=== PATIENT | male | born 1980 | race Caucasian/White ===

== ENCOUNTER 2022-01-06 14:39 | Inpatient (IN) | payer OTHER ==
[~2022-01-06] VITALS: Ht 170.2 cm; Wt 71.2 kg
[~2022-01-06 14:39] MED LIST: INS7030 SQ; LISI-893 PO; METF-1211 PO
[2022-01-06] MEDS ORDERED: VANCOMYCIN 1GM/WATER(PEG/NADA) 200 ML IV ONE (15:15)
[2022-01-06] MEDS ORDERED: SODIUM CHLORIDE 0.9% 1,000 ML IV ONE (15:15)
[2022-01-06] MEDS ORDERED: PIPERACILLIN/TAZO 3.375 GM/D5W 50 ML IV ONE (15:15)
[2022-01-06] MEDS ORDERED: ACETAMINOPHEN 500 MG TABLET PO ONE (15:15)
[2022-01-06] MEDS ORDERED: KETOROLAC TROMETHAMINE 30 MG/ML VIAL IVP ONE (15:15)
[2022-01-06 16:29] LABS: BASOPHILS % (AUTO) 0.6 % (0.0-2.0); EOSINOPHILS % (AUTO) 2.9 % (1.0-6.0); HEMATOCRIT 34.2 % (41-53); HEMOGLOBIN 11.4 g/dL (13.5-17.5); LYMPHOCYTES # (AUTO) 1.9 K/uL (1.0-4.8); LYMPHOCYTES % (AUTO) 27.5 % (22.0-44.0); MEAN CORPUSCULAR HEMOGLOBIN 27.7 pg (26.0-34.0); MEAN CORPUSCULAR HGB CONC 33.3 G/dL (31.0-37.0); MEAN CORPUSCULAR VOLUME 83 fL (80-100); MONOCYTES # (AUTO) 0.5 K/uL (0.1-1.0); MONOCYTES % (AUTO) 7.2 % (2.0-9.0); NEUTROPHILS # (AUTO) 4.2 K/uL (1.8-7.7); NEUTROPHILS % (AUTO) 61.8 % (40.0-70.0); PLATELET COUNT (AUTO) 262 K/uL (150-450); RED BLOOD CELL COUNT(AUTO) 4.11 MIL/uL (4.50-5.90); RED CELL DISTRIBUTION WIDTH 14.7 % (11.5-14.5)
[2022-01-06 16:47] LABS: ALANINE AMINOTRANSFERASE 18 U/L (12-78); ALBUMIN 2.8 g/dL (3.4-5.0); ALKALINE PHOSPHATASE 242 U/L (46-116); ANION GAP 4 mmol/L (8-16); ASPARTATE AMINOTRANSFERASE 15 U/L (15-37); BILIRUBIN,TOTAL 0.3 mg/dL (0.1-1.0); CALCIUM, TOTAL 8.5 mg/dL (8.8-10.5); CARBON DIOXIDE 31 mmol/L (22-29); CHLORIDE 96 mmol/L (98-107); CREATINE KINASE, TOTAL ONLY 198 U/L (39-308); CREATININE 1.74 mg/dL (0.60-1.30); PHOSPHORUS 3.3 mg/dL (2.5-4.9); POTASSIUM 4.2 mmol/L (3.5-5.1); SODIUM SERUM 131 mmol/L (136-145); TOTAL PROTEIN, SERUM 6.7 g/dL (6.4-8.2); UREA NITROGEN, BLOOD 25 mg/dL (7-18)
[2022-01-06 16:55] LABS: GLOMERULAR FILTR. RATE CALC 44 mL/min (>60); GLUCOSE,RANDOM 525 mg/dL (70-110)
[2022-01-06] MEDS ORDERED: INSULIN REGULAR, HUMAN 100 UNITS/ML IVP ONE (17:00)
[2022-01-06 17:02] LABS: ACETONE,BLOOD NEGATIVE (NEGATIVE); B-TYPE NATRIURETIC PEPTIDE 23 pg/mL (0-100)
[2022-01-06] MEDS ORDERED: LISI20TA24 PO (18:57)
[2022-01-06] MEDS ORDERED: ALPR0.5T8 PO (18:57)
[2022-01-06] MEDS ORDERED: GABA-529 PO (18:57)
[2022-01-06] MEDS ORDERED: DEXTROSE 50%-WATER 25 GM/50 ML SYRINGE IVP PRN (19:00)
[2022-01-06] MEDS ORDERED: ONDANSETRON HCL 4 MG/2 ML VIAL IVP PRN (19:00)
[2022-01-06] MEDS ORDERED: RINGERS SOLUTION,LACTATED 1,000 ML IV SCH (19:00)
[2022-01-06 19:50] LABS: COVID AG,FIA SOURCE NASOPHARYNGEAL
[2022-01-06] MEDS ORDERED: VANCOMYCIN HCL 500 MG in DEXTROSE 5%-WATER 100 ML IV ONE (21:00)
[2022-01-06] MEDS: INSULIN GLARGINE,HUM.REC.ANLOG 100 UNITS/ML SQ SCH (21:00)
[2022-01-06] MEDS ORDERED: SODIUM CHLORIDE 0.9% 500 ML IV ONE (22:16)
[2022-01-06 22:45] VITALS: BP 146/101
[2022-01-06 22:56] LABS: GLUCOMETER DEV NAME(LOC) ERT.5; GLUCOSE,POINT OF CARE 328 MG/DL (70-110)
[2022-01-06] MEDS: PIPERACILLIN/TAZO 3.375 GM/D5W 50 ML IV SCH ×2 (23:00→23:55)
[2022-01-06] MEDS: HEPARIN SODIUM,PORCINE 5,000 UNITS/ML VIAL SQ SCH (23:05)
[2022-01-06] MEDS: INSULIN LISPRO 100 UNITS/ML SQ PRN (23:10)
[2022-01-06] MEDS: MORPHINE SULFATE 2 MG/ML SYRINGE IVP PRN (23:56)
[2022-01-07] MEDS: PIPERACILLIN/TAZO 3.375 GM/D5W 50 ML IV SCH ×5 (00:04→23:39)
[2022-01-07 04:31] LABS: GLUCOMETER DEV NAME(LOC) 6N.2; GLUCOSE,POINT OF CARE 237 MG/DL (70-110)
[2022-01-07 04:47] VITALS: BP 159/100
[2022-01-07] MEDS: INSULIN LISPRO 100 UNITS/ML SQ PRN ×4 (05:20→21:30)
[2022-01-07] MEDS: MORPHINE SULFATE 2 MG/ML SYRINGE IVP PRN (05:25)
[2022-01-07 07:01] LABS: CALCIUM, TOTAL 8.2 mg/dL (8.8-10.5); CREATININE 1.64 mg/dL (0.60-1.30); POTASSIUM 3.4 mmol/L (3.5-5.1)
[2022-01-07 07:06] LABS: GLUCOMETER DEV NAME(LOC) 6N.1; GLUCOSE,POINT OF CARE 168 MG/DL (70-110)
[2022-01-07 07:38] LABS: CREATININE,URINE RANDOM 191.6 mg/dL (30.0-125.0)
[2022-01-07 07:43] LABS: AMPHET/METH SCREEN,URINE POSITIVE (NEGATIVE); BARBITURATE SCREEN, URINE NEGATIVE (NEGATIVE); BENZODIAZEPINES SCREEN,URINE NEGATIVE (NEGATIVE); CANNABINOID SCREEN,URINE NEGATIVE (NEGATIVE); COCAINE SCREEN,URINE NEGATIVE (NEGATIVE); METHADONE SCREEN, URINE NEGATIVE (NEGATIVE)
[2022-01-07 07:46] LABS: APPEARANCE,URINE TURBID (CLEAR); BILIRUBIN,URINE NEGATIVE (NEGATIVE); GLUCOSE, URINE (UA) TRACE mg/dL (NEGATIVE); KETONES,URINE NEGATIVE (NEGATIVE); LEUKOCYTE ESTERASE ,URINE LARGE (NEGATIVE); NITRATE,URINE NEGATIVE (NEGATIVE); OCCULT BLOOD,URINE LARGE (NEGATIVE); PROTEIN,URINE 300-600,SEE CONFIRM mg/dL (NEGATIVE); SPECIFIC GRAVITIY, URINE 1.032 (1.003-1.030); UROBILINOGEN,URINE <=1.0 mg/dL (<=1.0)
[2022-01-07] MEDS ORDERED: VANCOMYCIN HCL 750 MG in DEXTROSE 5%-WATER 250 ML IV SCH (08:00)
[2022-01-07 08:10] VITALS: BP 171/103
[2022-01-07 08:13] LABS: SULFOSALICYLIC ACID,URINE 3+ (Negative)
[2022-01-07 08:14] LABS: BACTERIA,URINE Many /HPF (None Seen); RBC,URINE >100 /HPF (0-2); SQUAMOUS EPITHELIAL CELL,UR Many /LPF (None Seen); WBC,URINE >100 /HPF (0-5)
[2022-01-07 08:18] LABS: OPIATE SCREEN,URINE POSITIVE (NEGATIVE)
[2022-01-07 08:19] LABS: PHENCYCLIDINE SCREEN,URINE NEGATIVE (NEGATIVE)
[2022-01-07] MEDS ORDERED: POTASSIUM CHLORIDE 20 MEQ ER TABLET PO ONE ×2 (09:00→16:15)
[2022-01-07] MEDS: LISINOPRIL 20 MG TABLET PO SCH (09:57)
[2022-01-07] MEDS: GABAPENTIN 100 MG CAPSULE PO SCH ×3 (09:57→21:26)
[2022-01-07] MEDS: HEPARIN SODIUM,PORCINE 5,000 UNITS/ML VIAL SQ SCH ×3 (09:57→23:39)
[2022-01-07 13:36] LABS: GLUCOMETER DEV NAME(LOC) 6N.1; GLUCOSE,POINT OF CARE 274 MG/DL (70-110)
[2022-01-07 15:14] VITALS: BP 143/88
[2022-01-07 18:56] LABS: GLUCOMETER DEV NAME(LOC) 6N.2; GLUCOSE,POINT OF CARE 185 MG/DL (70-110)
[2022-01-07 20:00] VITALS: BP 146/81
[2022-01-07] MEDS: ACETAMINOPHEN 325 MG TABLET PO PRN (21:27)
[2022-01-07] MEDS: INSULIN GLARGINE,HUM.REC.ANLOG 100 UNITS/ML SQ SCH (21:29)
[2022-01-08] MEDS: ACETAMINOPHEN 325 MG TABLET PO PRN (03:37)
[2022-01-08 04:00] VITALS: BP 146/84
[2022-01-08] MEDS: INSULIN LISPRO 100 UNITS/ML SQ PRN ×4 (05:57→20:03)
[2022-01-08] MEDS: PIPERACILLIN/TAZO 3.375 GM/D5W 50 ML IV SCH ×4 (05:59→23:37)
[2022-01-08 07:05] LABS: CALCIUM, TOTAL 8.3 mg/dL (8.8-10.5); CREATININE 1.67 mg/dL (0.60-1.30); POTASSIUM 4.1 mmol/L (3.5-5.1); VANCOMYCIN,RANDOM 5.3 mcg/mL (25.0-50.0)
[2022-01-08 07:36] LABS: GLUCOMETER DEV NAME(LOC) 6N.1; GLUCOSE,POINT OF CARE 143 MG/DL (70-110)
[2022-01-08 07:36] LABS: GLUCOMETER DEV NAME(LOC) 6N.2; GLUCOSE,POINT OF CARE 156 MG/DL (70-110)
[2022-01-08 08:27] VITALS: BP 134/82
[2022-01-08] MEDS: HEPARIN SODIUM,PORCINE 5,000 UNITS/ML VIAL SQ SCH ×3 (08:58→23:37)
[2022-01-08] MEDS: GABAPENTIN 100 MG CAPSULE PO SCH ×3 (08:58→20:00)
[2022-01-08] MEDS: LISINOPRIL 20 MG TABLET PO SCH (08:58)
[2022-01-08] MEDS: MORPHINE SULFATE 2 MG/ML SYRINGE IVP PRN ×2 (08:59→20:06)
[2022-01-08 12:55] LABS: GLUCOMETER DEV NAME(LOC) 6N.2; GLUCOSE,POINT OF CARE 183 MG/DL (70-110)
[2022-01-08 15:53] VITALS: BP 136/89
[2022-01-08 19:54] VITALS: BP 130/74
[2022-01-08] MEDS: INSULIN GLARGINE,HUM.REC.ANLOG 100 UNITS/ML SQ SCH (20:03)
[2022-01-09 02:02] VITALS: BP 118/74
[2022-01-09] MEDS: MORPHINE SULFATE 2 MG/ML SYRINGE IVP PRN ×2 (02:02→21:21)
[2022-01-09 03:41] LABS: GLUCOMETER DEV NAME(LOC) 6N.2; GLUCOSE,POINT OF CARE 283 MG/DL (70-110)
[2022-01-09 03:41] LABS: GLUCOMETER DEV NAME(LOC) 6N.2; GLUCOSE,POINT OF CARE 126 MG/DL (70-110)
[2022-01-09 04:34] VITALS: BP 140/81
[2022-01-09] MEDS: INSULIN LISPRO 100 UNITS/ML SQ PRN ×3 (06:08→21:20)
[2022-01-09] MEDS: PIPERACILLIN/TAZO 3.375 GM/D5W 50 ML IV SCH ×4 (06:11→23:18)
[2022-01-09 07:33] LABS: CREATININE 1.72 mg/dL (0.60-1.30)
[2022-01-09 08:00] VITALS: BP 106/62
[2022-01-09] MEDS: GABAPENTIN 100 MG CAPSULE PO SCH ×3 (08:26→21:15)
[2022-01-09] MEDS: HEPARIN SODIUM,PORCINE 5,000 UNITS/ML VIAL SQ SCH ×3 (08:27→23:20)
[2022-01-09] MEDS: ALPRAZolam 0.5 MG TABLET PO PRN (08:57)
[2022-01-09] MEDS: LISINOPRIL 20 MG TABLET PO SCH (09:00)
[2022-01-09 13:56] LABS: GLUCOMETER DEV NAME(LOC) 6N.2; GLUCOSE,POINT OF CARE 348 MG/DL (70-110)
[2022-01-09 13:56] LABS: GLUCOMETER DEV NAME(LOC) 6N.2; GLUCOSE,POINT OF CARE 102 MG/DL (70-110)
[2022-01-09 16:00] VITALS: BP 133/88
[2022-01-09] MEDS ORDERED: SODIUM CHLORIDE 0.9% 500 ML IV ONE (16:16)
[2022-01-09 19:35] VITALS: BP 149/93
[2022-01-09] MEDS: INSULIN GLARGINE,HUM.REC.ANLOG 100 UNITS/ML SQ SCH (21:18)
[2022-01-09] MEDS: ACETAMINOPHEN 325 MG TABLET PO PRN (21:23)
[2022-01-09 23:42] LABS: GLUCOMETER DEV NAME(LOC) 6N.1; GLUCOSE,POINT OF CARE 334 MG/DL (70-110)
[2022-01-10 04:05] VITALS: BP 145/92
[2022-01-10] MEDS: PIPERACILLIN/TAZO 3.375 GM/D5W 50 ML IV SCH ×4 (05:36→22:28)
[2022-01-10] MEDS: INSULIN LISPRO 100 UNITS/ML SQ PRN ×4 (05:43→20:35)
[2022-01-10 08:00] VITALS: BP 151/90
[2022-01-10] MEDS: HEPARIN SODIUM,PORCINE 5,000 UNITS/ML VIAL SQ SCH ×3 (08:09→22:55)
[2022-01-10] MEDS: LISINOPRIL 20 MG TABLET PO SCH (08:09)
[2022-01-10] MEDS: GABAPENTIN 100 MG CAPSULE PO SCH ×3 (08:09→20:20)
[2022-01-10] MEDS: MORPHINE SULFATE 2 MG/ML SYRINGE IVP PRN ×2 (08:10→19:22)
[2022-01-10 14:46] LABS: GLUCOMETER DEV NAME(LOC) 6N.1; GLUCOSE,POINT OF CARE 301 MG/DL (70-110)
[2022-01-10 14:46] LABS: GLUCOMETER DEV NAME(LOC) 6N.1; GLUCOSE,POINT OF CARE 326 MG/DL (70-110)
[2022-01-10 16:00] VITALS: BP 141/84
[2022-01-10 17:26] VITALS: BP 141/84
[2022-01-10 19:30] VITALS: BP 133/81
[2022-01-10] MEDS: INSULIN GLARGINE,HUM.REC.ANLOG 100 UNITS/ML SQ SCH (20:34)
[2022-01-10] MEDS: MELATONIN 3 MG TABLET PO PRN (21:36)
[2022-01-10 22:31] LABS: GLUCOMETER DEV NAME(LOC) 6N.1; GLUCOSE,POINT OF CARE 376 MG/DL (70-110)
[2022-01-10 22:32] LABS: GLUCOMETER DEV NAME(LOC) 6N.1; GLUCOSE,POINT OF CARE 231 MG/DL (70-110)
[2022-01-10] MEDS: ALPRAZolam 0.5 MG TABLET PO PRN (23:44)
[2022-01-11 04:20] VITALS: BP 138/94
[2022-01-11] MEDS: PIPERACILLIN/TAZO 3.375 GM/D5W 50 ML IV SCH ×4 (05:39→22:31)
[2022-01-11] MEDS: INSULIN LISPRO 100 UNITS/ML SQ PRN ×3 (05:56→20:58)
[2022-01-11 07:59] VITALS: BP 145/91
[2022-01-11 08:38] LABS: BASOPHILS % (AUTO) 0.4 % (0.0-2.0); EOSINOPHILS % (AUTO) 2.9 % (1.0-6.0); HEMATOCRIT 35.4 % (41-53); HEMOGLOBIN 11.7 g/dL (13.5-17.5); LYMPHOCYTES # (AUTO) 1.8 K/uL (1.0-4.8); LYMPHOCYTES % (AUTO) 30.7 % (22.0-44.0); MEAN CORPUSCULAR HEMOGLOBIN 27.6 pg (26.0-34.0); MEAN CORPUSCULAR HGB CONC 33.1 G/dL (31.0-37.0); MEAN CORPUSCULAR VOLUME 83 fL (80-100); MONOCYTES # (AUTO) 0.5 K/uL (0.1-1.0); MONOCYTES % (AUTO) 7.6 % (2.0-9.0); NEUTROPHILS # (AUTO) 3.5 K/uL (1.8-7.7); NEUTROPHILS % (AUTO) 58.4 % (40.0-70.0); PLATELET COUNT (AUTO) 228 K/uL (150-450); RED BLOOD CELL COUNT(AUTO) 4.26 MIL/uL (4.50-5.90); RED CELL DISTRIBUTION WIDTH 14.6 % (11.5-14.5)
[2022-01-11] MEDS: GABAPENTIN 100 MG CAPSULE PO SCH ×3 (08:48→20:56)
[2022-01-11] MEDS: HEPARIN SODIUM,PORCINE 5,000 UNITS/ML VIAL SQ SCH ×3 (08:48→23:25)
[2022-01-11] MEDS: LISINOPRIL 20 MG TABLET PO SCH (08:48)
[2022-01-11 08:56] LABS: GLUCOMETER DEV NAME(LOC) 6N.1; GLUCOSE,POINT OF CARE 302 MG/DL (70-110)
[2022-01-11 09:00] LABS: CALCIUM, TOTAL 8.5 mg/dL (8.8-10.5); CREATININE 1.68 mg/dL (0.60-1.30)
[2022-01-11 09:14] LABS: POTASSIUM 3.8 mmol/L (3.5-5.1)
[2022-01-11] MEDS ORDERED: RINGERS SOLUTION,LACTATED 1,000 ML IV ONE ×2 (09:14→09:15)
[2022-01-11] MEDS ORDERED: SODIUM CL IRRIG SOLN BAG 3,000 ML IRRIG ONE (09:56)
[2022-01-11] MEDS ORDERED: LIDOCAINE/PF 1% 30 ML VIAL ONE (09:56)
[2022-01-11] MEDS ORDERED: BUPIVACAINE HCL/PF 0.5% 30 ML VIAL ONE (09:56)
[2022-01-11] MEDS ORDERED: VANCOMYCIN HCL 1 GM/VIAL ONE (09:56)
[2022-01-11 14:51] VITALS: BP 125/83
[2022-01-11 15:26] LABS: GLUCOMETER DEV NAME(LOC) 6N.2; GLUCOSE,POINT OF CARE 141 MG/DL (70-110)
[2022-01-11] MEDS: ACETAMINOPHEN 325 MG TABLET PO PRN (15:51)
[2022-01-11] MEDS ORDERED: SODIUM CHLORIDE 0.9% 500 ML IV ONE (17:46)
[2022-01-11 18:36] LABS: GLUCOMETER DEV NAME(LOC) 6N.1; GLUCOSE,POINT OF CARE 224 MG/DL (70-110)
[2022-01-11 19:18] VITALS: BP 145/85
[2022-01-11] MEDS: INSULIN GLARGINE,HUM.REC.ANLOG 100 UNITS/ML SQ SCH (20:58)
[2022-01-11] MEDS: MELATONIN 3 MG TABLET PO PRN (22:30)
[2022-01-11 22:31] LABS: GLUCOMETER DEV NAME(LOC) 6N.1; GLUCOSE,POINT OF CARE 229 MG/DL (70-110)
[2022-01-12] MEDS ORDERED: MIDAZOLAM HCL 2 MG/2 ML VIAL IVP ONE (01:13)
[2022-01-12] MEDS ORDERED: PROPOFOL 1% 20 ML VIAL IVP ONE (01:13)
[2022-01-12] MEDS ORDERED: LIDOCAINE/PF 2% 5 ML VIAL IM ONE (01:13)
[2022-01-12] MEDS ORDERED: FentaNYL CITRATE PF 100 MCG/2 ML VIAL IVP ONE (01:13)
[2022-01-12 04:01] VITALS: BP 149/88
[2022-01-12] MEDS: INSULIN LISPRO 100 UNITS/ML SQ PRN ×3 (05:45→17:14)
[2022-01-12] MEDS: PIPERACILLIN/TAZO 3.375 GM/D5W 50 ML IV SCH ×2 (05:46→11:40)
[2022-01-12 06:41] LABS: GLUCOMETER DEV NAME(LOC) 6N.1; GLUCOSE,POINT OF CARE 312 MG/DL (70-110)
[2022-01-12] MEDS: LISINOPRIL 20 MG TABLET PO SCH (08:03)
[2022-01-12] MEDS: GABAPENTIN 100 MG CAPSULE PO SCH ×2 (08:03→16:00)
[2022-01-12 08:04] VITALS: BP 145/84
[2022-01-12] MEDS: HEPARIN SODIUM,PORCINE 5,000 UNITS/ML VIAL SQ SCH ×2 (08:05→16:00)
[2022-01-12] MEDS: ALPRAZolam 0.5 MG TABLET PO PRN (14:05)
[2022-01-12] MEDS ORDERED: HEPA500018 SQ (14:18)
[2022-01-12] MEDS ORDERED: SERT-158 PO (14:19)
[2022-01-12] MEDS ORDERED: INSLAN SQ (14:19)
[2022-01-12] MEDS ORDERED: PIPE3.3719 IV (14:19)
[2022-01-12] MEDS ORDERED: ACET-2247 PO (14:20)
[2022-01-12] MEDS ORDERED: ALPR-707 PO (14:21)
[2022-01-12] MEDS ORDERED: D50SYG IVP (14:22)
[2022-01-12] MEDS ORDERED: INSU100V SQ (14:23)
[2022-01-12] MEDS ORDERED: MELA3TAB89 PO (14:23)
[2022-01-12 15:06] VITALS: BP 140/83
[2022-01-12 16:01] LABS: GLUCOMETER DEV NAME(LOC) 6N.1; GLUCOSE,POINT OF CARE 216 MG/DL (70-110)
[2022-01-13 06:11] LABS: GLUCOMETER DEV NAME(LOC) 6N.2; GLUCOSE,POINT OF CARE 330 MG/DL (70-110)
[2022-01-13] MEDS ORDERED: SERTRALINE HCL 50 MG TABLET PO SCH (09:00)
== END 2022-01-12 17:32 | disposition short-term general hospital (02) | DRG 623 ==
LOC: EMS 14:39 → 6N 21:37
PROVIDERS: ADMIT Internal Medicine; ATTEND Internal Medicine
PROC: 0JBR0ZZ Excision of Left Foot Subcutaneous Tissue and Fascia, Open Approach (ICD-10-PCS; principal; 2022-01-10)
PROC: 0JBR0ZZ Excision of Left Foot Subcutaneous Tissue and Fascia, Open Approach (ICD-10-PCS; 2022-01-10)
DX: E11.69 Type 2 diabetes mellitus with other specified complication (principal); L03.116 Cellulitis of left lower limb; N39.0 Urinary tract infection, site not specified; M86.172 Other acute osteomyelitis, left ankle and foot; N17.9 Acute kidney failure, unspecified; E11.65 Type 2 diabetes mellitus with hyperglycemia; F19.10 Other psychoactive substance abuse, uncomplicated; Z20.822 Contact with and (suspected) exposure to COVID-19; E78.00 Pure hypercholesterolemia, unspecified; R74.8 Abnormal levels of other serum enzymes; I11.0 Hypertensive heart disease with heart failure; I50.9 Heart failure, unspecified; E11.621 Type 2 diabetes mellitus with foot ulcer; E87.6 Hypokalemia; E11.40 Type 2 diabetes mellitus with diabetic neuropathy, unspecified; B96.1 Klebsiella pneumoniae [K. pneumoniae] as the cause of diseases classified elsewhere; L97.529 Non-pressure chronic ulcer of other part of left foot with unspecified severity; Z79.4 Long term (current) use of insulin; Z99.3 Dependence on wheelchair; Z91.14 Patient's other noncompliance with medication regimen; Z91.19 Patient's noncompliance with other medical treatment and regimen
CPT/HCPCS: 71045; 73718; 76770; 80048; 80053; 80202; 81001; 81002; 82009; 82550; 82570; 82962; 83605; 83735; 83880; 83930; 84100; 84300; 84484; 85025; 87040; 87070; 87081; 87086; 87186; 87205; 88304; 93005; 99291; G0480; J1644; J1815; J1885; J2250; J2270; J2543; J2704; J3010; J3370; J3490; J7040; J7060; J7120; Q9967; 36415-L1; 36415-TC